=== PATIENT | male | born 1960 | race Caucasian/White ===

== ENCOUNTER 2017-09-28 22:16 | Inpatient (IN) | payer OTHER ==
[2017-09-28] MEDS ORDERED: Sodium Chloride 0.9% 1,000 ML IV ONE (23:04)
[2017-09-28] MEDS ORDERED: Sodium Chloride 0.9% 1,000 ML ONE (23:15)
[2017-09-28 23:17] LABS: BASO % 0.5 % (0.0-2.0); EOS # 0.1 K/uL (0.0-0.7); EOS % 1.6 % (0.0-4.0); HEMOGLOBIN 12.8 g/dL (12.0-18.0); LYMPH # 1.5 K/uL (1.0-4.3); LYMPH % 16.2 % (20.0-40.0); MEAN CELL VOLUME 87.3 fL (80.0-94.0); MEAN CORPUSCULAR HEMOGLOBIN 30.3 pg (27.0-31.0); MEAN CORPUSCULAR HGB CONC 34.7 g/dL (33.0-37.0); MEAN PLATELET VOLUME 9.5 fL (7.2-11.7); MONO # 0.6 K/uL (0.0-0.8); MONO % 6.3 % (0.0-10.0); NEUT # 6.9 K/uL (1.8-7.0); NEUT % 75.4 % (50.0-75.0); RBC 4.22 Mil/uL (4.40-5.90); RED CELL DISTRIBUTION WIDTH 13.9 % (11.5-14.5); WHITE BLOOD COUNT 9.2 K/uL (4.8-10.8)
[2017-09-28 23:29] LABS: ALB/GLOB RATIO 1.3 (1.0-2.1); ALT/SGPT 201 U/L (21-72); AST/SGOT 75 U/L (17-59); BLOOD UREA NITROGEN 11 mg/dL (9-20); CALCIUM 9.5 mg/dl (8.6-10.4); GFR AFRICAN-AMERICAN > 60; GFR NON-AFRICAN AMERICAN > 60; LIPASE 124 U/L (23-300)
[2017-09-28 23:48] LABS: SQUAMOUS EPITHIAL 1 /hpf (0-5); URINE BILIRUBIN NEGATIVE (NEGATIVE); URINE BLOOD 1+ (NEGATIVE); URINE CLARITY Clear (Clear); URINE COLOR Yellow (YELLOW); URINE GLUCOSE (UA) NORMAL (Normal); URINE LEUKOCYTE ESTERASE NEG Leu/uL (Negative); URINE PROTEIN NEGATIVE (NEGATIVE)
--- NOTE | 2017-09-29 00:27 | C.PDOC ---
History Of Present Illness 57 year old male presents to the ER with a complaint of RLQ/right flank pain for the past 3 days. Patient states the pain has been continuous. He has not taken anything at home for the pain. Denies fever, chills, nausea, vomiting, or urinary symptoms. Time Seen by Provider: 09/28/17 23:00 Chief Complaint (Nursing): Abdominal Pain History Per: Patient History/Exam Limitations: no limitations Onset/Duration Of Symptoms: Days Current Symptoms Are (Timing): Still Present Location Of Pain/Discomfort: RLQ Radiation Of Pain To:: None Quality Of Discomfort: Unable To Describe Associated Symptoms: denies: Fever, Chills, Nausea, Vomiting, Urinary Symptoms Exacerbating Factors: None Alleviating Factors: None Recent travel outside of the [place]: No Past Medical History Reviewed: Historical Data, Nursing Documentation, Vital Signs Vital Signs: Last Vital Signs Temp 98.8 F 09/28/17 22:24 Pulse 82 09/28/17 22:24 Resp 16 09/28/17 22:24 BP 149/81 09/28/17 22:24 Pulse Ox 97 09/29/17 00:54 - Medical History PMH: HTN Family History: States: Unknown Family Hx - Social History Hx Alcohol Use: Yes Hx Substance Use: No Review Of Systems Except As Marked, All Systems Reviewed And Found Negative. Gastrointestinal: Positive for: Abdominal Pain Physical Exam - Physical Exam Appears: Non-toxic Skin: Normal Color, Warm, Dry Head: Atraumatic, Normacephalic Eye(s): bilateral: Normal Inspection Oral Mucosa: Moist Neck: Normal, Supple Chest: Symmetrical, No Tenderness Cardiovascular: Rhythm Regular Respiratory: Normal Breath Sounds, No Rales, No Rhonchi, No Wheezing Gastrointestinal/Abdominal: Soft, Tenderness (RLQ, no mcburney's point), No Guarding, No Rebound Back: No CVA Tenderness Neurological/Psych: Oriented x3 ED Course And Treatment - Laboratory Results Result Diagrams: 09/28/17 23:14 09/28/17 23:14 O2 Sat by Pulse Oximetry: 97 (room air) Pulse Ox Interpretation: Normal Medical Decision Making Medical Decision Making: Assessment: Abdominal pain CT abd/pel, blood work, and urinalysis ordered. Pepcid, toradol, and IV fluids administered. 0100- ct scan of abd/pelvis pending - case s/o to Dr. Shelley Disposition - Disposition Disposition Time: 01:00 Condition: STABLE Forms: [facility] (Qatari) - Clinical Impression Clinical Impression: Abdominal pain - Scribe Statement The provider has reviewed the documentation as recorded by the Scribe [place] All medical record entries made by the Scribe were at my direction and personally dictated by me. I have reviewed the chart and agree that the record accurately reflects my personal performance of the history, physical exam, medical decision making, and the department course for this patient. I have also personally directed, reviewed, and agree with the discharge instructions and disposition. Physician Patient Turnover Patient Signed Over To: Anjelica Shelley
[2017-09-29] MEDS ORDERED: Piperacillin/Tazobact 3.375 gm 100 ML IVPB STA (01:04)
[2017-09-29] MEDS ORDERED: Piperacillin/Tazobact 3.375 gm 100 ML IVPB ONE (01:53)
--- NOTE | 2017-09-29 02:22 | CP.PCM.HP ---
<Elie Ott - Last Filed: 09/29/17 02:12> History of Present Illness - History of Present Illness History of Present Illness: General Surgery H&P for Dr. Haile CC: Abdominal Pain This is a 57M with a PMH of HTN. He presents with right sided abdominal pain that radiates to the back. He reports that this pain started on monday, it waxes and wanes, laying down makes it better laying on his right side and taking deep breaths makes it worse. Additionally he reports that food makes it worse. He describes the pain as "pinching". He reports one prior episode that happened about 1 year ago however it was self limiting and he did not go to the hospital for it. He denies any nausea or vomiting. He denies changes in stool consistency or color. He is moving his bowels regularly. He denies any chest pain or SOB. PMD: Yifan Jerome PMH: HTN PSH: Right open inguinal hernia repair with mesh (2000) Meds: Irbesartan 150mg PO QD, Atenalol/chlorothalidone 50-25mg PO QD ALL: NKDA Social: Denies tobacco or drugs reports social ETOH use Present on Admission - Present on Admission Any Indicators Present on Admission: No Review of Systems - Constitutional Constitutional: absent: Anorexia, Fatigue, Fever - EENT Eyes: absent: Blurred Vision, Change in Vision Ears: Tinnitus. absent: Ear Pain, Disequilibrium Nose/Mouth/Throat: absent: Sore Throat - Cardiovascular Cardiovascular: absent: Chest Pain, Dyspnea - Respiratory Respiratory: absent: Dyspnea, Dyspnea on Exertion - Gastrointestinal Gastrointestinal: Abdominal Pain, Cramping. absent: Bloating, Diarrhea, Heartburn, Nausea, Vomiting - Genitourinary Genitourinary: absent: Dysuria, Hematuria - Musculoskeletal Musculoskeletal: absent: Arthralgias, Myalgias Past Patient History - Past Social History Smoking Status: Never Smoked - CARDIAC Hx Hypertension: Yes - PSYCHIATRIC Hx Substance Use: No - SURGICAL HISTORY Hx Surgeries: Yes Hx Herniorrhaphy: Yes Meds Allergies/Adverse Reactions: Allergies Allergy/AdvReac Type Severity Reaction Status Date / Time No Known Allergies Allergy Verified 09/28/17 22:27 Physical Exam - Constitutional Appears: Non-toxic, No Acute Distress - Head Exam Head Exam: ATRAUMATIC, NORMOCEPHALIC - Eye Exam Eye Exam: EOMI, Normal appearance. absent: Scleral icterus - ENT Exam ENT Exam: Mucous Membranes Moist - Respiratory Exam Respiratory Exam: NORMAL BREATHING PATTERN - Cardiovascular Exam Cardiovascular Exam: +S1, +S2 - GI/Abdominal Exam GI & Abdominal Exam: Soft, Tenderness. absent: Firm, Guarding, Hernia, Rebound , Rigid Additional comments: Tender in right upper quadrant, Positive [place] sign - Extremities Exam Extremities exam: Positive for: normal inspection - Neurological Exam Neurological exam: Alert, Oriented x3 - Psychiatric Exam Psychiatric exam: Normal Affect, Normal Mood - Skin Skin Exam: Dry, Intact, Normal Color Results - Vital Signs Recent Vital Signs: Last Vital Signs Temp 98.4 F 09/29/17 01:33 Pulse 77 09/29/17 01:33 Resp 18 09/29/17 01:33 BP 125/78 09/29/17 01:33 Pulse Ox 97 09/29/17 01:33 - Labs Result Diagrams: 09/28/17 23:14 09/28/17 23:14 Labs: Laboratory Results - last 24 hr 09/28/17 09/28/17 09/28/17 23:14 23:14 23:42 WBC 9.2 RBC 4.22 L Hgb 12.8 Hct 36.9 MCV 87.3 MCH 30.3 MCHC 34.7 RDW 13.9 Plt Count 156 MPV 9.5 Neut % (Auto) 75.4 H Lymph % (Auto) 16.2 L [place] % (Auto) 6.3 Eos % (Auto) 1.6 Baso % (Auto) 0.5 Neut # (Auto) 6.9 Lymph # (Auto) 1.5 [place] # (Auto) 0.6 Eos # (Auto) 0.1 Baso # (Auto) 0.0 Sodium 140 Potassium 3.4 L Chloride 99 Carbon Dioxide 31 H Anion Gap 14 BUN 11 Creatinine 0.9 Est GFR ( Amer) > 60 Est GFR (Non-Af Amer) > 60 Random Glucose 145 H Calcium 9.5 Total Bilirubin 2.2 H AST 75 H ALT 201 H Alkaline Phosphatase 318 H Total Protein 7.0 Albumin 4.0 Globulin 3.0 Albumin/Globulin Ratio 1.3 Lipase 124 Urine Color Yellow Urine Clarity Clear Urine pH 7.0 Ur Specific [place] 1.005 Urine Protein Negative Urine Glucose (UA) Normal Urine Ketones Negative Urine Blood 1+ H Urine Nitrate Negative Urine Bilirubin Negative Urine Urobilinogen 4.0 Ur Leukocyte Esterase Neg Urine WBC (Auto) 1 Urine RBC (Auto) < 1 Ur Squamous Epith Cells 1 - Imaging and Cardiology CT scan - abdomen Status: Report reviewed by me Assessment & Plan - Assessment and Plan (Free Text) Assessment: 57M with acute cholecystitis Plan: Admit to surgical service NPO IVF MRCP IV Abx Pain control MRCP further recs per Dr. Mic Ott PGY3 <Gael Haile - Last Filed: 09/29/17 11:07> Results - Vital Signs Recent Vital Signs: Last Vital Signs Temp 98.3 F 09/29/17 08:22 Pulse 70 09/29/17 08:22 Resp 20 09/29/17 08:22 BP 133/81 09/29/17 08:22 Pulse Ox 96 09/29/17 08:22 - Labs Result Diagrams: 09/28/17 23:14 09/28/17 23:14 Labs: Laboratory Results - last 24 hr 09/28/17 09/28/17 09/28/17 23:14 23:14 23:42 WBC 9.2 RBC 4.22 L Hgb 12.8 Hct 36.9 MCV 87.3 MCH 30.3 MCHC 34.7 RDW 13.9 Plt Count 156 MPV 9.5 Neut % (Auto) 75.4 H Lymph % (Auto) 16.2 L [place] % (Auto) 6.3 Eos % (Auto) 1.6 Baso % (Auto) 0.5 Neut # (Auto) 6.9 Lymph # (Auto) 1.5 [place] # (Auto) 0.6 Eos # (Auto) 0.1 Baso # (Auto) 0.0 PT INR APTT Sodium 140 Potassium 3.4 L Chloride 99 Carbon Dioxide 31 H Anion Gap 14 BUN 11 Creatinine 0.9 Est GFR ( Amer) > 60 Est GFR (Non-Af Amer) > 60 Random Glucose 145 H Calcium 9.5 Total Bilirubin 2.2 H AST 75 H ALT 201 H Alkaline Phosphatase 318 H Total Protein 7.0 Albumin 4.0 Globulin 3.0 Albumin/Globulin Ratio 1.3 Lipase 124 Urine Color Yellow Urine Clarity Clear Urine pH 7.0 Ur Specific [place] 1.005 Urine Protein Negative Urine Glucose (UA) Normal Urine Ketones Negative Urine Blood 1+ H Urine Nitrate Negative Urine Bilirubin Negative Urine Urobilinogen 4.0 Ur Leukocyte Esterase Neg Urine WBC (Auto) 1 Urine RBC (Auto) < 1 Ur Squamous Epith Cells 1 09/29/17 07:37 WBC RBC Hgb Hct MCV MCH MCHC RDW Plt Count MPV Neut % (Auto) Lymph % (Auto) [place] % (Auto) Eos % (Auto) Baso % (Auto) Neut # (Auto) Lymph # (Auto) [place] # (Auto) Eos # (Auto) Baso # (Auto) PT 12.3 H INR 1.1 APTT 42 H Sodium Potassium Chloride Carbon Dioxide Anion Gap BUN Creatinine Est GFR ( Amer) Est GFR (Non-Af Amer) Random Glucose Calcium Total Bilirubin AST ALT Alkaline Phosphatase Total Protein Albumin Globulin Albumin/Globulin Ratio Lipase Urine Color Urine Clarity Urine pH Ur Specific [place] Urine Protein Urine Glucose (UA) Urine Ketones Urine Blood Urine Nitrate Urine Bilirubin Urine Urobilinogen Ur Leukocyte Esterase Urine WBC (Auto) Urine RBC (Auto) Ur Squamous Epith Cells Assessment & Plan - Assessment and Plan (Free Text) Plan: I personally saw and examined the patient with the resident staff and agree with the above assessment. I personally reviewed the available diagnostic images and imaging reports. Large dilated gallbladder with inflammatory changes on CT. US shows obstructing stone. No clinical evidence to suggest pancreatitis or stone traversing biliary tree. No need for MCRP. Will proceed with laparoscopic cholecystectomy and possible cholangiogram this morning.
[2017-09-29] MEDS ORDERED: Potassium Chloride 20 mEq/15 ml LIQ UD PO ONE (02:44)
[2017-09-29] MEDS ORDERED: Piperacill/Tazo 3.375gm in Dex 3.375 GM/50 ML BAG IVPB SCH (02:45)
[2017-09-29] MEDS: Sodium Chloride 0.9% 1,000 ML IV SCH ×3 (03:05→19:30)
--- NOTE | 2017-09-29 07:12 | CP.PCM.CON ---
<Emily Pena - Last Filed: 09/29/17 17:39> Meds Allergies/Adverse Reactions: Allergies Allergy/AdvReac Type Severity Reaction Status Date / Time No Known Allergies Allergy Verified 09/28/17 22:27 - Medications Medications: Current Medications Atenolol (Tenormin) 50 mg PO DAILY [facility] Last Admin: 09/29/17 09:57 Dose: Not Given Chlorthalidone (Hygroton) 25 mg PO DAILY [facility] Last Admin: 09/29/17 09:57 Dose: Not Given Sodium Chloride (Sodium Chloride 0.9%) 1,000 mls @ 125 mls/hr IV .Q8H [facility] Last Admin: 09/29/17 11:18 Dose: 125 mls/hr Piperacillin Sod/Tazobactam Sod (Zosyn 3.375 Gm Iv Premix) 3.375 gm in 50 mls @ 100 mls/hr IVPB Q6H [facility]AT[facility] PRN Reason: Protocol Last Admin: 09/29/17 14:00 Dose: 50 mls Losartan Potassium (Cozaar) 50 mg PO DAILY [facility] Last Admin: 09/29/17 09:57 Dose: Not Given Morphine Sulfate (Morphine) 2 mg IVP Q4H PRN PRN Reason: Pain, moderate (4-7) Last Admin: 09/29/17 11:21 Dose: 2 mg Ondansetron HCl (Zofran Inj) 4 mg IVP Q6 PRN PRN Reason: Nausea/Vomiting Results - Vital Signs Recent Vital Signs: Last Vital Signs Temp 98.3 F 09/29/17 08:22 Pulse 70 09/29/17 08:22 Resp 20 09/29/17 08:22 BP 133/81 09/29/17 08:22 Pulse Ox 96 09/29/17 08:22 - Labs Result Diagrams: 09/28/17 23:14 09/28/17 23:14 Labs: Laboratory Results - last 24 hr 09/28/17 09/28/17 09/28/17 23:14 23:14 23:42 WBC 9.2 RBC 4.22 L Hgb 12.8 Hct 36.9 MCV 87.3 MCH 30.3 MCHC 34.7 RDW 13.9 Plt Count 156 MPV 9.5 Neut % (Auto) 75.4 H Lymph % (Auto) 16.2 L [place] % (Auto) 6.3 Eos % (Auto) 1.6 Baso % (Auto) 0.5 Neut # (Auto) 6.9 Lymph # (Auto) 1.5 [place] # (Auto) 0.6 Eos # (Auto) 0.1 Baso # (Auto) 0.0 PT INR APTT Sodium 140 Potassium 3.4 L Chloride 99 Carbon Dioxide 31 H Anion Gap 14 BUN 11 Creatinine 0.9 Est GFR ( Amer) > 60 Est GFR (Non-Af Amer) > 60 Random Glucose 145 H Calcium 9.5 Total Bilirubin 2.2 H AST 75 H ALT 201 H Alkaline Phosphatase 318 H Total Protein 7.0 Albumin 4.0 Globulin 3.0 Albumin/Globulin Ratio 1.3 Lipase 124 Urine Color Yellow Urine Clarity Clear Urine pH 7.0 Ur Specific [place] 1.005 Urine Protein Negative Urine Glucose (UA) Normal Urine Ketones Negative Urine Blood 1+ H Urine Nitrate Negative Urine Bilirubin Negative Urine Urobilinogen 4.0 Ur Leukocyte Esterase Neg Urine WBC (Auto) 1 Urine RBC (Auto) < 1 Ur Squamous Epith Cells 1 09/29/17 07:37 WBC RBC Hgb Hct MCV MCH MCHC RDW Plt Count MPV Neut % (Auto) Lymph % (Auto) [place] % (Auto) Eos % (Auto) Baso % (Auto) Neut # (Auto) Lymph # (Auto) [place] # (Auto) Eos # (Auto) Baso # (Auto) PT 12.3 H INR 1.1 APTT 42 H Sodium Potassium Chloride Carbon Dioxide Anion Gap BUN Creatinine Est GFR ( Amer) Est GFR (Non-Af Amer) Random Glucose Calcium Total Bilirubin AST ALT Alkaline Phosphatase Total Protein Albumin Globulin Albumin/Globulin Ratio Lipase Urine Color Urine Clarity Urine pH Ur Specific [place] Urine Protein Urine Glucose (UA) Urine Ketones Urine Blood Urine Nitrate Urine Bilirubin Urine Urobilinogen Ur Leukocyte Esterase Urine WBC (Auto) Urine RBC (Auto) Ur Squamous Epith Cells Attending/Attestation - Attestation I have personally seen and examined this patient.: Yes I have fully participated in the care of the patient.: Yes I have reviewed all pertinent clinical information: Yes Notes (Text): Seen and examined this morning. History taken with the resident. patient has history of HTN and controlled on meds.No cardiac history,No significant family history. Patient denies chest pain,no sob 09/29/17 17:39 <Megan Casanova P - Last Filed: 09/30/17 03:24> History of Present Illness - History of Present Illness History of Present Illness: Consult Note for Medicine service. Patient is 57M with PMHx of HTN who presented to ED for 4 days of severe RUQ abdominal pain and was admitted for acute cholecystitis. Medicine was consulted for medical optimization for surgery following Q waves found in inferior leads on EKG. Patient states he was diagnosed with hypertension 10 years ago after an episode of dizziness, after which he was placed on medication and has been asymptomatic since. States he is compliant with medication. Patient reportedly saw a folder tier in [facility] 5 years ago for a "check up" and was sent for a stress test but does not remember the results. Patient does not remember if he has had an Echo. Denies cardiac catheterization or other cardiac intervention. Denies chest pain, palpitations, lower extremity swelling, orthopnea, shortness of breath on exertion, lightheadedness, dizziness. PMD: Yifan Jerome PMH: HTN PSH: Right open inguinal hernia repair with mesh (2000) Meds: Irbesartan 150mg PO Daily, Atenalol/chlorothalidone 50-25mg PO Daily ALL: NKDA, no food allergies Social: Denies tobacco or drugs. reports social alcohol use. Family Hx: Mother- HTN, ; Father-HTN, . All 4 siblings with HTN. No family Hx of ND. Review of Systems - Constitutional Constitutional: absent: Chills, Fever, Headache, Malaise - EENT Eyes: absent: Blurred Vision, Loss of Vision - Cardiovascular Cardiovascular: absent: Chest Pain, Claudication, Dyspnea on Exertion, Edema, Pain Radiating to Arm/Neck/Jaw, Palpitations - Respiratory Respiratory: absent: Cough, Dyspnea, Hemoptysis, Wheezing - Gastrointestinal Gastrointestinal: Abdominal Pain. absent: Diarrhea, Hematochezia, Loose Stools , Melena - Genitourinary Genitourinary: absent: Difficulty Urinating, Hematuria - Musculoskeletal Musculoskeletal: absent: Back Pain, Joint Swelling, Numbness, Stiffness - Neurological Neurological: absent: Dizziness, Numbness, Frequent Falls, Paresthesias, Weakness Past Patient History - Past Medical History & Family History Past Medical History?: Yes - Past Social History Smoking Status: Never Smoked - CARDIAC Hx Cardiac Disorders: Yes Hx Hypertension: Yes - PULMONARY Hx Respiratory Disorders: No - NEUROLOGICAL Hx Neurological Disorder: No - HEENT Hx HEENT Problems: No - RENAL Hx Chronic Kidney Disease: No - ENDOCRINE/METABOLIC Hx Endocrine Disorders: No - HEMATOLOGICAL/ONCOLOGICAL Hx Blood Disorders: No - INTEGUMENTARY Hx Dermatological Problems: No - MUSCULOSKELETAL/RHEUMATOLOGICAL Hx Musculoskeletal Disorders: No Hx Falls: No - GASTROINTESTINAL Hx Gastrointestinal Disorders: No - GENITOURINARY/GYNECOLOGICAL Hx Genitourinary Disorders: No - PSYCHIATRIC Hx Psychophysiologic Disorder: No Hx Substance Use: No - SURGICAL HISTORY Hx Surgeries: Yes Hx Herniorrhaphy: Yes - ANESTHESIA Hx Anesthesia: Yes Hx Anesthesia Reactions: No Hx Malignant Hyperthermia: No Meds - Medications Medications: Current Medications Atenolol (Tenormin) 50 mg PO DAILY [facility] Chlorthalidone (Hygroton) 25 mg PO DAILY [facility] Sodium Chloride (Sodium Chloride 0.9%) 1,000 mls @ 125 mls/hr IV .Q8H [facility] Last Admin: 09/29/17 03:05 Dose: 125 mls/hr Piperacillin Sod/Tazobactam Sod (Zosyn 3.375 Gm Iv Premix) 3.375 gm in 50 mls @ 100 mls/hr IVPB Q6H [facility] PRN Reason: Protocol Losartan Potassium (Cozaar) 50 mg PO DAILY [facility] Morphine Sulfate (Morphine) 2 mg IVP Q4H PRN PRN Reason: Pain, moderate (4-7) Ondansetron HCl (Zofran Inj) 4 mg IVP Q6 PRN PRN Reason: Nausea/Vomiting Physical Exam - Head Exam Head Exam: ATRAUMATIC, NORMOCEPHALIC - Eye Exam Eye Exam: EOMI, Normal appearance - ENT Exam ENT Exam: Mucous Membranes Moist - Respiratory Exam Respiratory Exam: Clear to Auscultation Bilateral, NORMAL BREATHING PATTERN. absent: Rales, Rhonchi, Wheezes - Cardiovascular Exam Cardiovascular Exam: REGULAR RHYTHM, +S2 - GI/Abdominal Exam GI & Abdominal Exam: Soft, Tenderness (mild, R sided abdomen). absent: Guarding , Rebound, Rigid - Extremities Exam Extremities exam: Positive for: full ROM. Negative for: pedal edema, tenderness - Neurological Exam Neurological exam: Alert, Oriented x3 - Psychiatric Exam Psychiatric exam: Normal Mood - Skin Skin Exam: Dry, Normal Color, Warm Results - Vital Signs Recent Vital Signs: Last Vital Signs Temp 98.2 F 09/29/17 04:38 Pulse 77 09/29/17 04:38 Resp 20 09/29/17 04:38 BP 136/80 09/29/17 04:38 Pulse Ox 97 09/29/17 04:38 - Labs Result Diagrams: 09/28/17 23:14 09/28/17 23:14 Labs: Laboratory Results - last 24 hr 09/28/17 09/28/17 09/28/17 23:14 23:14 23:42 WBC 9.2 RBC 4.22 L Hgb 12.8 Hct 36.9 MCV 87.3 MCH 30.3 MCHC 34.7 RDW 13.9 Plt Count 156 MPV 9.5 Neut % (Auto) 75.4 H Lymph % (Auto) 16.2 L [place] % (Auto) 6.3 Eos % (Auto) 1.6 Baso % (Auto) 0.5 Neut # (Auto) 6.9 Lymph # (Auto) 1.5 [place] # (Auto) 0.6 Eos # (Auto) 0.1 Baso # (Auto) 0.0 Sodium 140 Potassium 3.4 L Chloride 99 Carbon Dioxide 31 H Anion Gap 14 BUN 11 Creatinine 0.9 Est GFR ( Amer) > 60 Est GFR (Non-Af Amer) > 60 Random Glucose 145 H Calcium 9.5 Total Bilirubin 2.2 H AST 75 H ALT 201 H Alkaline Phosphatase 318 H Total Protein 7.0 Albumin 4.0 Globulin 3.0 Albumin/Globulin Ratio 1.3 Lipase 124 Urine Color Yellow Urine Clarity Clear Urine pH 7.0 Ur Specific [place] 1.005 Urine Protein Negative Urine Glucose (UA) Normal Urine Ketones Negative Urine Blood 1+ H Urine Nitrate Negative Urine Bilirubin Negative Urine Urobilinogen 4.0 Ur Leukocyte Esterase Neg Urine WBC (Auto) 1 Urine RBC (Auto) < 1 Ur Squamous Epith Cells 1 Assessment & Plan - Assessment and Plan (Free Text) Plan: 57 year old male with PMHx of HTN admitted for acute cholecystitis with Q waves found on EKG. Patient with history of well controlled HTN, asymptomatic. Cardiology consulted, Dr. Martinez, for cardiac optimization. Help appreciated. Cardiac risk index for non cardiac surgery- 1 point (Q waves on EKG), Class 2 Risk, 0.9 % risk of major cardiac. Will continue to follow. - Date & Time Date: 09/29/17 Time: 07:11
--- NOTE | 2017-09-29 07:57 | CT ---
Date of service: 09/28/2017 PROCEDURE: CT Abdomen and Pelvis without intravenous contrast HISTORY: Abdominal pain COMPARISON: None. TECHNIQUE: Multiple contiguous axial images were performed through the abdomen and pelvis without the use of intravenous contrast. Subsequently, sagittal and coronal reformatted images were obtained. Radiation dose: Total exam DLP = 566 mGy-cm. This CT exam was performed using one or more of the following dose reduction techniques: Automated exposure control, adjustment of the mA and/or kV according to patient size, and/or use of iterative reconstruction technique. FINDINGS: LOWER THORAX: Scattered atelectasis at the lung bases. 1.2 centimeter focal area of nodular consolidation at the inferior aspect of the right middle lobe. Additional focal area of consolidation at the posterior aspect of the left upper lobe measuring 1.6 centimeters on series 3 image 17. LIVER: Unremarkable. No gross lesion or ductal dilatation. GALLBLADDER AND BILE DUCTS: Gallbladder distention wall thickening and mild pericholecystic edema. No gross calcified gallstones. These findings may represent acute cholecystitis. Correlation with right upper quadrant ultrasound maybe helpful if clinically indicated. PANCREAS: Unremarkable. No gross lesion or ductal dilatation. SPLEEN: Unremarkable. Splenule. ADRENALS: Unremarkable. No mass. KIDNEYS AND URETERS: Unremarkable. No hydronephrosis. No solid mass. VASCULATURE: Unremarkable. No aortic aneurysm. BOWEL: Under distended sigmoid colon. Within the right inguinal region proximally, anterior to the right iliac vessels, there is a confluent focal area of soft tissue thickening measuring up to 3.1 x 2.3 centimeters demonstrating a Hounsfield unit attenuation of 7 suggestive for possible fluid attenuation. This is of uncertain clinical etiology and subtle soft tissue lesion at this level cannot entirely be excluded. This is best seen on series 3, images 150 to 168. Clinical correlation. APPENDIX: No findings to suggest acute appendicitis. PERITONEUM: Unremarkable. No free fluid. No free air. LYMPH NODES: Unremarkable. No enlarged lymph nodes. BLADDER: Unremarkable. REPRODUCTIVE: Unremarkable. BONES: Degenerative changes in the spine. Bridging sclerosis at the right SI joint. 7 millimeter subchondral cyst formation noted within the anterior aspect of the proximal left femur. Paravertebral osteophyte formation. OTHER FINDINGS: None. IMPRESSION: 1. Gallbladder distention with wall thickening and mild pericholecystic edema which may represent an underlying acute cholecystitis. Clinical correlation. Correlation with right quadrant ultrasound may be helpful if clinically indicated. 2. Within the right inguinal region proximally, anterior to the right iliac vessels, there is a confluent focal area of soft tissue thickening measuring up to 3.1 x 2.3 centimeters demonstrating a Hounsfield unit attenuation of 7 suggestive for possible fluid attenuation. This is of uncertain clinical etiology and subtle soft tissue lesion at this level cannot entirely be excluded. This is best seen on series 3, images 150 to 168. Clinical correlation. Additional findings as above. These findings were preliminarily reported at 12:27 a.m. on 09/29/[address] Adalberto Hampton from [facility].
[2017-09-29] MEDS: Piperacill/Tazo 3.375gm in Dex 3.375 GM/50 ML BAG IVPB SCH ×3 (08:01→19:52)
[2017-09-29 08:19] LABS: INR 1.1; PROTHROMBIN TIME 12.3 SECONDS (9.7-12.2)
--- NOTE | 2017-09-29 08:39 | US ---
Date of service: 09/29/2017 HISTORY: GB stones COMPARISON: None. TECHNIQUE: Sonographic evaluation of the right upper quadrant of the abdomen. FINDINGS: LIVER: Measures 14.4 cm in length. Diffusely increased echogenicity of the liver parenchyma. Consistent with fatty infiltration. No mass. No biliary ductal dilatation. GALLBLADDER: Cholelithiasis. There is a nonmobile calculus in the gallbladder neck measuring 2.1 cm. There is mild mural thickening, nonspecific, up to 5 mm. There is no pericholecystic fluid. There is no sonographic Vincent sign. Findings are equivocal for cholecystitis. COMMON BILE DUCT: Measures 5 mm. No stones. No dilatation. PANCREAS: Unremarkable as visualized. No mass. No ductal dilatation. RIGHT KIDNEY: Measures 11.5 cm in length. Normal echogenicity. No calculus, mass, or hydronephrosis. AORTA: No aneurysmal dilatation. IVC: Unremarkable. OTHER FINDINGS: None . IMPRESSION: Cholelithiasis. Nonmobile calculus in gallbladder neck may be impacted. Mild mural thickening, nonspecific. Fatty infiltration of the liver.
--- NOTE | 2017-09-29 08:49 | RAD ---
Date of service: 09/29/2017 PROCEDURE: CHEST RADIOGRAPH, 1 VIEW HISTORY: preop COMPARISON: None available. FINDINGS: LUNGS: Clear. PLEURA: No pneumothorax or pleural fluid seen. CARDIOVASCULAR: Normal. OSSEOUS STRUCTURES: No significant abnormalities. VISUALIZED UPPER ABDOMEN: Normal. OTHER FINDINGS: None. IMPRESSION: No active disease.
[2017-09-29] MEDS ORDERED: Enoxaparin 30 mg Syringe SC SCH (10:00)
--- NOTE | 2017-09-29 10:11 | CP.PCM.CON ---
<Tarun Rebolledo - Last Filed: 09/29/17 10:54> History of Present Illness - History of Present Illness History of Present Illness: PGY-[address] Martinez Pt is a pleasant 57 year old syriac speaking male with PMHx HTN, inguinal hernia s/p mesh repair (2000) who presented to the hospital last night with worsening sharp RLQ abdominal pain radiating to the right side of the back. Patient states that he first began experiencing this pain on Monday when the pain was localized to the R abdomen and continued to have mild pain through , but began to notice the pain worsening with radiation to the back on , causing him to come the the emergency department. Pt states that the pain is worse when lying on the R side and alleviated by lying flat. Pt reports pain has improved with medication. Pain was localized as being tender to palpation on the patient's R side, near his back. Pt thinks pain may be exacerbated by oral intake, but unsure. Pt denies nausea, vomiting, bloody, dark, or tarry stools, painful on urination or hematuria. Pt reports one similar episode that occured while visiting [facility] that resolved spontaneously. Pt has a history of HTN managed by his PCP. Pt denies any history of LA or other cardiac disease. Pt denies any family history of heart disease including parents and siblings. Pt denies tobacco use except occasional cigarettes as a teenager, drinks only socially. Pt denies ever experiencing any chest pain or palpitations. Review of Systems - Constitutional Constitutional: absent: Fever, Headache - Cardiovascular Cardiovascular: absent: Chest Pain, Dyspnea, Dyspnea on Exertion, Leg Edema, Lightheadedness, Palpitations, Pedal Edema - Respiratory Respiratory: absent: Dyspnea on Exertion, Wheezing - Gastrointestinal Gastrointestinal: Abdominal Pain. absent: Change in Bowel Habits, Change in Stool Character, Diarrhea, Melena, Nausea, Vomiting - Genitourinary Genitourinary: absent: Dysuria, Hematuria, Urinary Frequency - Neurological Neurological: absent: Dizziness, Headaches, Paresthesias Past Patient History - Past Medical History & Family History Past Medical History?: Yes - Past Social History Smoking Status: Never Smoked - CARDIAC Hx Hypertension: Yes - PULMONARY Hx Respiratory Disorders: No - NEUROLOGICAL Hx Neurological Disorder: No - HEENT Hx HEENT Problems: No - RENAL Hx Chronic Kidney Disease: No - ENDOCRINE/METABOLIC Hx Endocrine Disorders: No - HEMATOLOGICAL/ONCOLOGICAL Hx Blood Disorders: No - INTEGUMENTARY Hx Dermatological Problems: No - MUSCULOSKELETAL/RHEUMATOLOGICAL Hx Musculoskeletal Disorders: No Hx Falls: No - GASTROINTESTINAL Hx Gastrointestinal Disorders: No - GENITOURINARY/GYNECOLOGICAL Hx Genitourinary Disorders: No - PSYCHIATRIC Hx Psychophysiologic Disorder: No Hx Substance Use: No - SURGICAL HISTORY Hx Surgeries: Yes Hx Herniorrhaphy: Yes - ANESTHESIA Hx Anesthesia: Yes Hx Anesthesia Reactions: No Hx Malignant Hyperthermia: No Meds Allergies/Adverse Reactions: Allergies Allergy/AdvReac Type Severity Reaction Status Date / Time No Known Allergies Allergy Verified 09/28/17 22:27 - Medications Medications: Current Medications Atenolol (Tenormin) 50 mg PO DAILY [facility] Last Admin: 09/29/17 07:46 Dose: Not Given Chlorthalidone (Hygroton) 25 mg PO DAILY [facility] Last Admin: 09/29/17 07:45 Dose: Not Given Sodium Chloride (Sodium Chloride 0.9%) 1,000 mls @ 125 mls/hr IV .Q8H [facility] Last Admin: 09/29/17 03:05 Dose: 125 mls/hr Piperacillin Sod/Tazobactam Sod (Zosyn 3.375 Gm Iv Premix) 3.375 gm in 50 mls @ 100 mls/hr IVPB Q6H [facility] PRN Reason: Protocol Last Admin: 09/29/17 08:01 Dose: 100 mls/hr Losartan Potassium (Cozaar) 50 mg PO DAILY [facility] Last Admin: 09/29/17 07:45 Dose: Not Given Morphine Sulfate (Morphine) 2 mg IVP Q4H PRN PRN Reason: Pain, moderate (4-7) Ondansetron HCl (Zofran Inj) 4 mg IVP Q6 PRN PRN Reason: Nausea/Vomiting Physical Exam - Constitutional Appears: No Acute Distress - Head Exam Head Exam: NORMAL INSPECTION, NORMOCEPHALIC - Eye Exam Eye Exam: EOMI, Normal appearance, PERRL - ENT Exam ENT Exam: Mucous Membranes Moist - Respiratory Exam Respiratory Exam: Clear to Auscultation Bilateral, NORMAL BREATHING PATTERN - Cardiovascular Exam Cardiovascular Exam: REGULAR RHYTHM, +S1, +S2. absent: Diastolic murmur, Systolic Murmur - GI/Abdominal Exam GI & Abdominal Exam: Firm Additional comments: +pain to palpation on RLQ and R side - Extremities Exam Extremities exam: Negative for: joint swelling, pedal edema - Neurological Exam Neurological exam: Alert, CN II-XII Intact, Oriented x3 - Skin Skin Exam: Dry, Intact, Normal Color Results - Vital Signs Recent Vital Signs: Last Vital Signs Temp 98.3 F 09/29/17 08:22 Pulse 70 09/29/17 08:22 Resp 20 09/29/17 08:22 BP 133/81 09/29/17 08:22 Pulse Ox 96 09/29/17 08:22 - Labs Result Diagrams: 09/28/17 23:14 09/28/17 23:14 Labs: Laboratory Results - last 24 hr 09/28/17 09/28/17 09/28/17 23:14 23:14 23:42 WBC 9.2 RBC 4.22 L Hgb 12.8 Hct 36.9 MCV 87.3 MCH 30.3 MCHC 34.7 RDW 13.9 Plt Count 156 MPV 9.5 Neut % (Auto) 75.4 H Lymph % (Auto) 16.2 L [place] % (Auto) 6.3 Eos % (Auto) 1.6 Baso % (Auto) 0.5 Neut # (Auto) 6.9 Lymph # (Auto) 1.5 [place] # (Auto) 0.6 Eos # (Auto) 0.1 Baso # (Auto) 0.0 PT INR APTT Sodium 140 Potassium 3.4 L Chloride 99 Carbon Dioxide 31 H Anion Gap 14 BUN 11 Creatinine 0.9 Est GFR ( Amer) > 60 Est GFR (Non-Af Amer) > 60 Random Glucose 145 H Calcium 9.5 Total Bilirubin 2.2 H AST 75 H ALT 201 H Alkaline Phosphatase 318 H Total Protein 7.0 Albumin 4.0 Globulin 3.0 Albumin/Globulin Ratio 1.3 Lipase 124 Urine Color Yellow Urine Clarity Clear Urine pH 7.0 Ur Specific [place] 1.005 Urine Protein Negative Urine Glucose (UA) Normal Urine Ketones Negative Urine Blood 1+ H Urine Nitrate Negative Urine Bilirubin Negative Urine Urobilinogen 4.0 Ur Leukocyte Esterase Neg Urine WBC (Auto) 1 Urine RBC (Auto) < 1 Ur Squamous Epith Cells 1 09/29/17 07:37 WBC RBC Hgb Hct MCV MCH MCHC RDW Plt Count MPV Neut % (Auto) Lymph % (Auto) [place] % (Auto) Eos % (Auto) Baso % (Auto) Neut # (Auto) Lymph # (Auto) [place] # (Auto) Eos # (Auto) Baso # (Auto) PT 12.3 H INR 1.1 APTT 42 H Sodium Potassium Chloride Carbon Dioxide Anion Gap BUN Creatinine Est GFR ( Amer) Est GFR (Non-Af Amer) Random Glucose Calcium Total Bilirubin AST ALT Alkaline Phosphatase Total Protein Albumin Globulin Albumin/Globulin Ratio Lipase Urine Color Urine Clarity Urine pH Ur Specific [place] Urine Protein Urine Glucose (UA) Urine Ketones Urine Blood Urine Nitrate Urine Bilirubin Urine Urobilinogen Ur Leukocyte Esterase Urine WBC (Auto) Urine RBC (Auto) Ur Squamous Epith Cells Assessment & Plan (1) Abdominal pain Assessment and Plan: CT Abd/Pelvis (09/28): Gallbladder wall thickening, distension, mild pericholecystic fluid, mild soft tissue thickening of R inguinal region Abd US (09/29): Nonobstructing calculus in the gallbladder, equivocal for acute cholecystitis, hepatic fat deposition LFTs and Alk Phos noted to be elevated Cardiac evaluation for operative management: Patient's cardiovascular history significant only for medically controlled HTN. Pt has no other significant risk factors for CAD including family hx negative, nonsmoker, no hx DM, age < 65. Q waves on EKG do not appear to be pathological. Per ACC/AHA guidelines, pt is at low risk for cardiac events. Pt has functional capacity up to and greater than 4 METs. Pt cleared to proceed with low-risk operative procedure. Status: Acute <Esvin Martinez - Last Filed: 09/29/17 19:43> Meds - Medications Medications: Current Medications Atenolol (Tenormin) 50 mg PO DAILY [facility] Last Admin: 09/29/17 09:57 Dose: Not Given Chlorthalidone (Hygroton) 25 mg PO DAILY [facility] Last Admin: 09/29/17 09:57 Dose: Not Given Hydromorphone HCl (Dilaudid) 0.25 mg IVP Q10M PRN PRN Reason: Pain, moderate (4-7) Stop: 09/29/17 19:44 Sodium Chloride (Sodium Chloride 0.9%) 1,000 mls @ 125 mls/hr IV .Q8H [facility] Last Admin: 09/29/17 19:30 Dose: Not Given Piperacillin Sod/Tazobactam Sod (Zosyn 3.375 Gm Iv Premix) 3.375 gm in 50 mls @ 100 mls/hr IVPB Q6H [facility] PRN Reason: Protocol Last Admin: 09/29/17 14:00 Dose: 50 mls Lactated Ringer's (Lactated Ringer's) 1,000 mls @ 100 mls/hr IV .Q10H [facility] Last Admin: 09/29/17 18:45 Dose: Not Given Acetaminophen 1,000 mg/ (Miscellaneous) 100 mls @ 400 mls/hr IV Q6 PRN PRN Reason: Pain, moderate (4-7) Stop: 09/30/17 18:29 Lidocaine (Lidoderm) 1 ea TD DAILY [facility] Losartan Potassium (Cozaar) 50 mg PO DAILY [facility] Last Admin: 09/29/17 09:57 Dose: Not Given Morphine Sulfate (Morphine) 2 mg IVP Q4H PRN PRN Reason: Pain, moderate (4-7) Last Admin: 09/29/17 11:21 Dose: 2 mg Ondansetron HCl (Zofran Inj) 4 mg IVP Q6 PRN PRN Reason: Nausea/Vomiting Oxycodone/Acetaminophen (Percocet 5/325 Mg Tab) 1 tab PO Q4H PRN PRN Reason: Pain, moderate (4-7) Stop: 10/02/17 17:41 Results - Vital Signs Recent Vital Signs: Last Vital Signs Temp 98.4 F 09/29/17 19:10 Pulse 89 09/29/17 19:10 Resp 20 09/29/17 19:10 BP 132/71 09/29/17 19:10 Pulse Ox 95 09/29/17 19:10 - Labs Result Diagrams: 09/28/17 23:14 09/28/17 23:14 Labs: Laboratory Results - last 24 hr 09/28/17 09/28/17 09/28/17 23:14 23:14 23:42 WBC 9.2 RBC 4.22 L Hgb 12.8 Hct 36.9 MCV 87.3 MCH 30.3 MCHC 34.7 RDW 13.9 Plt Count 156 MPV 9.5 Neut % (Auto) 75.4 H Lymph % (Auto) 16.2 L [place] % (Auto) 6.3 Eos % (Auto) 1.6 Baso % (Auto) 0.5 Neut # (Auto) 6.9 Lymph # (Auto) 1.5 [place] # (Auto) 0.6 Eos # (Auto) 0.1 Baso # (Auto) 0.0 PT INR APTT Sodium 140 Potassium 3.4 L Chloride 99 Carbon Dioxide 31 H Anion Gap 14 BUN 11 Creatinine 0.9 Est GFR ( Amer) > 60 Est GFR (Non-Af Amer) > 60 Random Glucose 145 H Calcium 9.5 Total Bilirubin 2.2 H AST 75 H ALT 201 H Alkaline Phosphatase 318 H Total Protein 7.0 Albumin 4.0 Globulin 3.0 Albumin/Globulin Ratio 1.3 Lipase 124 Urine Color Yellow Urine Clarity Clear Urine pH 7.0 Ur Specific [place] 1.005 Urine Protein Negative Urine Glucose (UA) Normal Urine Ketones Negative Urine Blood 1+ H Urine Nitrate Negative Urine Bilirubin Negative Urine Urobilinogen 4.0 Ur Leukocyte Esterase Neg Urine WBC (Auto) 1 Urine RBC (Auto) < 1 Ur Squamous Epith Cells 1 09/29/17 07:37 WBC RBC Hgb Hct MCV MCH MCHC RDW Plt Count MPV Neut % (Auto) Lymph % (Auto) [place] % (Auto) Eos % (Auto) Baso % (Auto) Neut # (Auto) Lymph # (Auto) [place] # (Auto) Eos # (Auto) Baso # (Auto) PT 12.3 H INR 1.1 APTT 42 H Sodium Potassium Chloride Carbon Dioxide Anion Gap BUN Creatinine Est GFR ( Amer) Est GFR (Non-Af Amer) Random Glucose Calcium Total Bilirubin AST ALT Alkaline Phosphatase Total Protein Albumin Globulin Albumin/Globulin Ratio Lipase Urine Color Urine Clarity Urine pH Ur Specific [place] Urine Protein Urine Glucose (UA) Urine Ketones Urine Blood Urine Nitrate Urine Bilirubin Urine Urobilinogen Ur Leukocyte Esterase Urine WBC (Auto) Urine RBC (Auto) Ur Squamous Epith Cells Attending/Attestation - Attestation I have personally seen and examined this patient.: Yes I have fully participated in the care of the patient.: Yes I have reviewed all pertinent clinical information: Yes
[2017-09-29] MEDS ORDERED: Midazolam 2 MG/2 ML VIAL ONE (13:50)
[2017-09-29] MEDS ORDERED: Succinylcholine Chloride 20 mg/ml Syr (5 ml) IV ONE (13:51)
[2017-09-29] MEDS ORDERED: Rocuronium 10 mg/ml (10 ml) ONE (13:51)
[2017-09-29] MEDS ORDERED: Bupivacaine 0.25% 20 ML INJ IJ ONE (13:51)
[2017-09-29] MEDS ORDERED: Lidocaine/Epinephrine 1% 1:100000 10 ML IJ ONE (13:52)
[2017-09-29] MEDS ORDERED: Propofol 10 mg/ml Inj (20 ML) ONE ×2 (13:52→17:24)
[2017-09-29] MEDS ORDERED: Iodixanol 320 MG/ML 200 ML BOTTLE IV ONE (15:35)
[2017-09-29] MEDS ORDERED: Oxycodone/Acetaminophen 5/325 mg Tab PO PRN (17:40)
--- NOTE | 2017-09-29 17:41 | PCM.SURG1 ---
Surgeon's Initial Post Op Note - Surgeon's Notes Surgeon: Dr. Haile Backbreaker: Dr. Mccauley PGY4, Dr. Michaels PGY3 Type of Anesthesia: General Endo Pre-Operative Diagnosis: acute cholecystitis Operative Findings: see operative report Post-Operative Diagnosis: see operative report Operation Performed: laparoscopic cholecystectomy Specimen/Specimens Removed: gallbladder Estimated Blood Loss: EBL {In ML}: 50 Blood Products Given: N/A Drains Used: Henry Guerrero Post-Op Condition: Good Date of Surgery/Procedure: 09/29/17 Time of Surgery/Procedure: 15:00
[2017-09-29] MEDS ORDERED: HYDROmorphone 0.5 mg/0.5 ml ISec IVP PRN (17:43)
[2017-09-29] MEDS ORDERED: Acetaminophen IV 1,000 MG in Premixed IV 1 EA IV PRN (18:28)
[2017-09-29] MEDS: Lactated Ringer's 1,000 ML IV SCH (18:45)
[2017-09-29] MEDS: Lidocaine 5% Patch TD SCH (19:52)
[2017-09-30] MEDS: Piperacill/Tazo 3.375gm in Dex 3.375 GM/50 ML BAG IVPB SCH ×4 (01:12→18:39)
--- NOTE | 2017-09-30 03:04 | CP.PCM.PN ---
<Frederic Canela - Last Filed: 09/30/17 03:14> Subjective - Date & Time of Evaluation Date of Evaluation: 09/30/17 Time of Evaluation: 03:01 - Subjective Subjective: Progress Note for Hospitalist service Patient seen and examined at bedside. He states he has a little bit of abdominal pain after cholecystectomy. He denies chest pain, shortness of breath , palpitations, lower extremity pain. Family present at bedside. Objective - Vital Signs/Intake and Output Vital Signs (last 24 hours): Temp Pulse Resp BP Pulse Ox 99.3 F 100 H 20 122/74 95 09/29/17 23:15 09/29/17 23:15 09/29/17 23:15 09/29/17 23:15 09/29/17 23:15 Intake and Output: 09/29/17 09/30/17 18:59 06:59 Intake Total 2200 620 Output Total 415 820 Balance 1785 -200 - Medications Medications: Current Medications Atenolol (Tenormin) 50 mg PO DAILY [facility] Last Admin: 09/29/17 09:57 Dose: Not Given Chlorthalidone (Hygroton) 25 mg PO DAILY [facility] Last Admin: 09/29/17 09:57 Dose: Not Given Sodium Chloride (Sodium Chloride 0.9%) 1,000 mls @ 125 mls/hr IV .Q8H [facility] Last Admin: 09/29/17 19:30 Dose: Not Given Piperacillin Sod/Tazobactam Sod (Zosyn 3.375 Gm Iv Premix) 3.375 gm in 50 mls @ 100 mls/hr IVPB Q6H [facility] PRN Reason: Protocol Last Admin: 09/30/17 01:12 Dose: 100 mls/hr Lactated Ringer's (Lactated Ringer's) 1,000 mls @ 100 mls/hr IV .Q10H [facility] Last Admin: 09/30/17 00:00 Dose: 100 mls/hr Acetaminophen 1,000 mg/ (Miscellaneous) 100 mls @ 400 mls/hr IV Q6 PRN PRN Reason: Pain, moderate (4-7) Stop: 09/30/17 18:29 Lidocaine (Lidoderm) 1 ea TD DAILY [facility] Last Admin: 09/29/17 19:52 Dose: 1 ea Losartan Potassium (Cozaar) 50 mg PO DAILY [facility] Last Admin: 09/29/17 09:57 Dose: Not Given Morphine Sulfate (Morphine) 2 mg IVP Q4H PRN PRN Reason: Pain, moderate (4-7) Last Admin: 09/29/17 11:21 Dose: 2 mg Ondansetron HCl (Zofran Inj) 4 mg IVP Q6 PRN PRN Reason: Nausea/Vomiting Oxycodone/Acetaminophen (Percocet 5/325 Mg Tab) 1 tab PO Q4H PRN PRN Reason: Pain, moderate (4-7) Stop: 10/02/17 17:41 - Labs Labs: 09/28/17 23:14 09/28/17 23:14 PT 12.3 SECONDS (9.7-12.2) H 09/29/17 07:37 INR 1.1 09/29/17 07:37 APTT 42 SECONDS (21-34) H 09/29/17 07:37 - Constitutional Appears: Well, No Acute Distress - Head Exam Head Exam: ATRAUMATIC, NORMOCEPHALIC - Eye Exam Eye Exam: EOMI - ENT Exam ENT Exam: Mucous Membranes Moist - Neck Exam Neck Exam: Full ROM - Respiratory Exam Respiratory Exam: Clear to Ausculation Bilateral, NORMAL BREATHING PATTERN. absent: Rales, Rhonchi, Wheezes - Cardiovascular Exam Cardiovascular Exam: REGULAR RHYTHM, +S1, +S2 - GI/Abdominal Exam GI & Abdominal Exam: Soft, Tenderness (Mild tenderness at surgical sites. Dressings clean, dry and intact. PAUL drain in place with sanguineous fluid. Carlos in place draining clear yellow urine. ), Diminished Bowel Sounds (but present in all 4 quadrants). absent: Distended, Firm, Guarding, Rigid - Extremities Exam Extremities Exam: absent: Calf Tenderness, Pedal Edema - Neurological Exam Neurological Exam: Alert, Awake, Oriented x3 - Psychiatric Exam Psychiatric exam: Normal Affect, Normal Mood Assessment and Plan - Assessment and Plan (Free Text) Plan: Assessment/plan s/p cholecystectomy * POD 1 laparoscopic cholecystectomy * Afebrile, not tachycardic * Pain controlled * NS IVF @125cc/hr * Zosyn 3.375g IV * Zofran 4mg Q6 PRN * Morphine 2mg IVP Q4 PRN * Percocet 1 tab PO Q4 PRN * CT Abd/Pelvis (09/28): Gallbladder wall thickening, distension, mild pericholecystic fluid, mild soft tissue thickening of R inguinal region * Abd US (09/29): Nonobstructing calculus in the gallbladder, equivocal for acute cholecystitis, hepatic fat deposition Hx of well controlled HTN * Cardiology consulted, Dr. Martniez, for cardiac optimization. Help appreciated. * Cardiac risk index for non cardiac surgery- 1 point (Q waves on EKG), Class 2 Risk, 0.9 % risk of major cardiac events * Atenolol 50mg PO daily * Cozaar 50mg PO daily * Chlorthalidone 25mg PO daily Case discussed with Dr. Becky Canela, PGY1 <Emily Pena - Last Filed: 09/30/17 10:07> Objective - Vital Signs/Intake and Output Vital Signs (last 24 hours): Temp Pulse Resp BP Pulse Ox 98.5 F 83 18 121/73 97 09/30/17 08:44 09/30/17 08:44 09/30/17 08:44 09/30/17 08:44 09/30/17 08:44 Intake and Output: 09/30/17 09/30/17 06:59 18:59 Intake Total 1370 Output Total 1350 Balance 20 - Medications Medications: Current Medications Atenolol (Tenormin) 50 mg PO DAILY [facility] Last Admin: 09/29/17 09:57 Dose: Not Given Chlorthalidone (Hygroton) 25 mg PO DAILY [facility] Last Admin: 09/29/17 09:57 Dose: Not Given Heparin Sodium (Porcine) (Heparin) 5,000 units SC Q8 [facility] Piperacillin Sod/Tazobactam Sod (Zosyn 3.375 Gm Iv Premix) 3.375 gm in 50 mls @ 100 mls/hr IVPB Q6H [facility] PRN Reason: Protocol Last Admin: 09/30/17 08:15 Dose: 100 mls/hr Acetaminophen 1,000 mg/ (Miscellaneous) 100 mls @ 400 mls/hr IV Q6 PRN PRN Reason: Pain, moderate (4-7) Stop: 09/30/17 18:29 Lidocaine (Lidoderm) 1 ea TD DAILY [facility] Last Admin: 09/29/17 19:52 Dose: 1 ea Losartan Potassium (Cozaar) 50 mg PO DAILY [facility] Last Admin: 09/29/17 09:57 Dose: Not Given Ondansetron HCl (Zofran Inj) 4 mg IVP Q6 PRN PRN Reason: Nausea/Vomiting Oxycodone/Acetaminophen (Percocet 5/325 Mg Tab) 1 tab PO Q4H PRN PRN Reason: Pain, moderate (4-7) Stop: 10/02/17 17:41 - Labs Labs: 09/30/17 08:29 09/30/17 08:29 PT 12.3 SECONDS (9.7-12.2) H 09/29/17 07:37 INR 1.1 09/29/17 07:37 APTT 42 SECONDS (21-34) H 09/29/17 07:37 Attending/Attestation - Attestation I have personally seen and examined this patient.: Yes I have fully participated in the care of the patient.: Yes I have reviewed all pertinent clinical information, including history, physical exam and plan: Yes Notes (Text): Seen and examined this morning. POD-1 doing well His blood pressure is controlled,cardiology input appreciated. continue home meds I agree with the resident's documentation of the assessment and the plan Thank you for the consultation .We will sign off from our service
[2017-09-30] MEDS: Lactated Ringer's 1,000 ML IV SCH ×2 (05:05)
[2017-09-30] MEDS: Sodium Chloride 0.9% 1,000 ML IV SCH (05:05)
--- NOTE | 2017-09-30 08:37 | CP.PCM.PN ---
Subjective - Date & Time of Evaluation Date of Evaluation: 09/30/17 Time of Evaluation: 07:15 - Subjective Subjective: Patient seen and examined. No acute events over night. Tolerated liquid diet. Reports pain along surgical incision sites. Right PAUL drain had 50cc/24hr serosanguinous output. Carlos cath 1300cc/24hr. Objective - Vital Signs/Intake and Output Vital Signs (last 24 hours): Temp Pulse Resp BP Pulse Ox 99.1 F 96 H 20 128/72 99 09/30/17 04:04 09/30/17 04:04 09/30/17 04:04 09/30/17 04:04 09/30/17 04:04 Intake and Output: 09/30/17 09/30/17 06:59 18:59 Intake Total 1370 Output Total 1350 Balance 20 - Medications Medications: Current Medications Atenolol (Tenormin) 50 mg PO DAILY [facility] Last Admin: 09/29/17 09:57 Dose: Not Given Chlorthalidone (Hygroton) 25 mg PO DAILY [facility] Last Admin: 09/29/17 09:57 Dose: Not Given Heparin Sodium (Porcine) (Heparin) 5,000 units SC Q8 [facility] Piperacillin Sod/Tazobactam Sod (Zosyn 3.375 Gm Iv Premix) 3.375 gm in 50 mls @ 100 mls/hr IVPB Q6H [facility] PRN Reason: Protocol Last Admin: 09/30/17 08:15 Dose: 100 mls/hr Acetaminophen 1,000 mg/ (Miscellaneous) 100 mls @ 400 mls/hr IV Q6 PRN PRN Reason: Pain, moderate (4-7) Stop: 09/30/17 18:29 Lidocaine (Lidoderm) 1 ea TD DAILY [facility] Last Admin: 09/29/17 19:52 Dose: 1 ea Losartan Potassium (Cozaar) 50 mg PO DAILY [facility] Last Admin: 09/29/17 09:57 Dose: Not Given Ondansetron HCl (Zofran Inj) 4 mg IVP Q6 PRN PRN Reason: Nausea/Vomiting Oxycodone/Acetaminophen (Percocet 5/325 Mg Tab) 1 tab PO Q4H PRN PRN Reason: Pain, moderate (4-7) Stop: 10/02/17 17:41 - Labs Labs: 09/28/17 23:14 09/28/17 23:14 PT 12.3 SECONDS (9.7-12.2) H 09/29/17 07:37 INR 1.1 09/29/17 07:37 APTT 42 SECONDS (21-34) H 09/29/17 07:37 - Constitutional Appears: No Acute Distress - Head Exam Head Exam: NORMOCEPHALIC - Eye Exam Eye Exam: EOMI, Normal appearance - ENT Exam ENT Exam: Mucous Membranes Moist - Respiratory Exam Respiratory Exam: NORMAL BREATHING PATTERN - Cardiovascular Exam Cardiovascular Exam: +S1, +S2 - GI/Abdominal Exam GI & Abdominal Exam: Soft, Tenderness. absent: Distended, Firm, Guarding, Rigid Additional comments: tender along incision sites, appropriate s/p surg - Neurological Exam Neurological Exam: Alert, Awake, Oriented x3 - Psychiatric Exam Psychiatric exam: Normal Mood - Skin Skin Exam: Dry, Normal Color, Warm Assessment and Plan - Assessment and Plan (Free Text) Assessment: 57M s/p laparoscopic cholecystectomy POD1 Plan: Adv to regular diet D/C Carlos catheter C/w ABx Analgesic/Anti-emetic prn F/u AM labs Encourage IS use and ambulation DVT ppx D/w Dr. Mic Cr PGY3
[2017-09-30 08:38] LABS: BASO % 0.3 % (0.0-2.0); HEMOGLOBIN 10.9 g/dL (12.0-18.0); LYMPH # 1.3 K/uL (1.0-4.3); LYMPH % 9.3 % (20.0-40.0); MEAN CELL VOLUME 87.9 fL (80.0-94.0); MEAN CORPUSCULAR HEMOGLOBIN 29.8 pg (27.0-31.0); MEAN CORPUSCULAR HGB CONC 33.9 g/dL (33.0-37.0); MEAN PLATELET VOLUME 9.4 fL (7.2-11.7); MONO # 0.8 K/uL (0.0-0.8); MONO % 5.4 % (0.0-10.0); NEUT # 11.8 K/uL (1.8-7.0); PLATELET COUNT 173 K/uL (130-400); RBC 3.67 Mil/uL (4.40-5.90); RED CELL DISTRIBUTION WIDTH 14.1 % (11.5-14.5); WHITE BLOOD COUNT 13.8 K/uL (4.8-10.8)
[2017-09-30 09:15] LABS: ALB/GLOB RATIO 1.2 (1.0-2.1); ALBUMIN 3.2 g/dL (3.5-5.0); ALT/SGPT 164 U/L (21-72); AST/SGOT 78 U/L (17-59); BLOOD UREA NITROGEN 9 mg/dL (9-20); CALCIUM 8.8 mg/dl (8.6-10.4); GFR AFRICAN-AMERICAN > 60; GFR NON-AFRICAN AMERICAN > 60
[2017-09-30 09:56] LABS: ANISOCYTOSIS SLIGHT; BANDS 1 % (0-2); LYMPHOCYTE 11 % (20-40); MONOCYTE 6 % (0-10); NEUTROPHIL 82 % (50-75); PLATELET ESTIMATE NORMAL (NORMAL); TOTAL CELLS COUNTED 100
[2017-09-30 09:57] LABS: LARGE PLATELETS PRESENT
[2017-09-30] MEDS: Lidocaine 5% Patch TD SCH (10:01)
[2017-09-30 16:02] VITALS: BP 116/70; PULSE 70; RESP 20; TEMP 98.3; O2SAT 95
--- NOTE | 2017-09-30 18:32 | PCM.OP ---
Operative Report - Operative Report Date of Surgery/Procedure: 09/29/17 Time of Surgery/Procedure: 14:00 Surgeon: Gael Haile MD Senior Media Buyer: David Mccauley DO (PGY4 resident), Babar Michaels DO (PGY3 resident) Anesthesia/Sedation: General endotracheal; 1% lidocaine + 0.25% Marcaine mix local anesthesia Pre-Operative Diagnosis: Symptomatic cholelithiasis. Acute cholecystitis Post-Operative Diagnosis: Symptomatic cholelithiasis. Acute cholecystitis Indication for Surgery: This is a 57-year-old male presented to ED with 4 days RUQ pain due to symptomatic cholelithiasis and acute cholecystitis, with CT evidence of large dilated, fluid filled gallbladder and wall thickening and inflammation; RUQ US showed a 2cm non-mobile obtructing stone in the gallbladder neck. Details of HPI in clinical chart. Taken to the operating room for laparoscopic cholecystectomy. Patient understands the risks and benefits of the procedure as documented in the clinic chart but specifically risk of cystic duct leak and common bile duct injury, need for open surgery and has consented to the procedure. Operative Findings: Significant inflammation in right upper quadrant with adhesions from gallbladder to omentum, colon and distal stomach. Large inflamed , fluid filled gallbladder with multiple large stones. Gallbladder specimen measured approximately 6 inches in length. Clips in place on cystic duct and cystic artery at end of case without evidence of bleeding or bile leak. Procedure/Operation Description: PROCEDURES PERFORMED: 1) Laparoscopic Cholecystectomy. . DESCRIPTION OF PROCEDURE: The patient was given a preoperative dose of Zosyn 20 minutes before the incision. SCD boots were placed for DVT prophylaxis. The patient had an orogastric tube placed in order to empty the stomach after the induction of general anesthesia. Small caliber kelly catheter inserted to decompress bladder. Upper and lower body warmer placed to maintain normothermia. Secure straps placed above and bleow the knees and footboard placed. Arms placed on arm boards out at 80 degress. All bony prominences were padded. A timeout was performed prior to incision. The abdomen was prepped and draped in sterile fashion. All skin incisions were made using an 11 blade scalpel after being pre-anesthetized with local anesthesia. In the infraaumbilical midline, a circumlinear incision was made and the umbilical raphe was identified and the fascia was divided between clamps at its base entering the abdomen in an open fashion. A 11-mm trocar was inserted in the abdomen and the abdomen was insufflated to 15 mmHg pressure with CO2. A 30-degree viewing scope was then inserted and the abdomen was generally inspected and there was not found to be any additional signs of pathology. In the right upper quadrant, two 5-mm ports were placed after the under direct vision and in the subxiphoid midline, an 11-mm radially dilating port was placed in the similar fashion. . There was significant inflammation in the right upper abdomen and a large dilated gallbladder fundus was identified beneath the liver edge. A laparoscopic aspiration needle was inserted into the fundus and used to aspirate 30cc of bilious fluid for decompression and allow grasping and retraction. The fundus of the gallbladder was then retracted to the right upper quadrant and the neck of the gallbladder was visualized. There were omental adhesions to the gallbladder that were taken down with a cominbation of sharp dissection and hook cautery. The peritoneal attachments from the lateral portion of the gallbladder/cystic duct junction were gently dissected and divided to open up the [place]. The [place] was then dissected up onto the liver bed posterior to the gallbladder in order to ensure that this was the cystic duct and not tenting of the common bile duct. This took considerable amount of tedious dissection given the size of galbladder and degree of inflammation, both of which worse than normal. The infundibulum was large and adherent to the gallbladder neck. The peritoneal attachments on the medial portion of the gallbladder going up to the side of the liver were taken. The critical view was obtained. The cystic duct was then doubly clipped and ligated. Cystic artery clipped and ligated in similar fashion. The the clips were inspected. . Once this was completed, the gallbladder was dissected free from the liver bed using electrocautery and placed this in an endo catch bag. During this dissection thre was some bleeding on the liver bed due to the degree of nflammation and friability of tissue. Hemostasis was achieved using topical hemostatic agent and further electrocautery. The specimen was withdrawn through the subxiphoid port. Because of the size of the gallbladder specimen and presence of large stones, initial attempt at extraction resulted with breaking of the endocath bag with speciemn intact partially through skin incision. We switched to a 5mm degreee scope and An additional endocatch bag was introduced throught the 11mm camera port and the specimen placed back into the bag. The subxiphoid port site fascia was incised and enlarged to about 2.5 cm to accocmodate speciemn extraction. Specimen was removed intact and sent off to pathology. Once this was done, the abdomen was reinspected. The clips were in good position on the cystic artery and duct stumps and the abdomen was generally irrigated and drained. A 19 Fr round PAUL drain was left in the RUQ liver edge and brought out through the right lateral port site, secured to skin with 2-0 nylon suture. . Once this was done, the ports were removed from the abdomen and the abdomen was desufflated with air. The subxiphoid site fascia was closed with 0 figure-of- eight Vicryl sutures x3, umbilical port was closed with 0 [id number] Vicryl suture x1. Subxiphoid skin closed with naima and the remaining skin incisions were closed with 4-0 monocryl sutures. The patient tolerated the procedure well and was extubated and stable in recovery after the procedure. . I was present throughout the entirety of the procedure. Sponge, needle and instrument counts were correct. Estimated Blood Loss: 50mL Drains: 19 Fr PAUL drain x 1 Complications: none Specimen: gallbladder Discharge & Condition: stable in recovery after the procedure.
== END 2017-09-30 20:34 | disposition home or self-care (01) | DRG 494 ==
LOC: C.ER 22:16 → C.9E 09-29 02:32 → C.6T 09-29 02:53
PROVIDERS: ADMIT Surgery; ATTEND Surgery
PROC: 0DNU4ZZ Release Omentum, Percutaneous Endoscopic Approach (ICD-10-PCS; 2017-09-29)
PROC: 0FT44ZZ Resection of Gallbladder, Percutaneous Endoscopic Approach (ICD-10-PCS; principal; 2017-09-29 13:00)
DX: K80.00 Calculus of gallbladder with acute cholecystitis without obstruction (principal); K66.0 Peritoneal adhesions (postprocedural) (postinfection); I10 Essential (primary) hypertension; K82.8 Other specified diseases of gallbladder; Z87.891 Personal history of nicotine dependence